=== PATIENT | female | born 1985 | race American Indian/Alaskan Native ===

== ENCOUNTER 2021-02-27 09:48 | Outpatient (CLI) | payer OTHER ==
--- NOTE | 2021-02-27 10:55 | Mammography Report ---
DEXA BONE DENSITY SCAN INDICATION / CLINICAL INFORMATION: MENOP SYNDROME. 35 years Female COMPARISON: None available. LUMBAR SPINE (L1-L4): - Bone mineral density (BMD) = 0.948 g/cm2. - T-score = -0.9 - Z-score = -1.7 Change (%) since most recent prior (if available): None available. FEMORAL NECK: -Left total Bone mineral density (BMD) = 0.967 g/cm2. - T-score = 0.2 - Z-score = -0.3 Change (%) since most recent prior (if available): None available. IMPRESSION: 1. WHO Classification: Normal bone density. Fracture Risk: Not Increased. 2. 10-Year Fracture Risk (FRAX) = Major Osteoporotic Not reported.% / Hip: Not reported.%. BMD Reporting Guidelines (ISCD, 2015) BMD Reporting in Postmenopausal Women and in Men Age 50 and Older * T-scores are preferred. * The WHO densitometric classification is applicable. BMD Reporting in Females Prior to Menopause and in Males Younger Than Age 50 * Z-scores, not T-scores, are preferred. This is particularly important in children. * A Z-score of -2.0 or lower is defined as below the expected range for age, and a Z-score above -2. 0 is within the expected range for age. * Osteoporosis cannot be diagnosed in men under age 50 on the basis of BMD alone. * The WHO diagnostic criteria may be applied to women in the menopausal transition. http://www.iscd.org/official-positions/4313-bqsw-puzmyioq-positions-adult/ Signer Name: Richard Shaw MD Signed: 02/27/2021 10:49 AM Workstation Name: [id number]
== END 2021-02-27 09:49 | disposition home or self-care (01) ==
LOC: MAMMO 09:48
PROVIDERS: ATTEND Obstetrics & Gynecology
DX: N95.1 Menopausal and female climacteric states (principal); E28.319 Asymptomatic premature menopause
CPT/HCPCS: 77080